=== PATIENT | male | born 1955 | race Two or more races ===

== ENCOUNTER 2019-08-05 10:19 | Outpatient (CLI) | payer OTHER | END 2019-08-05 11:00 | disposition home or self-care (01) | LOC: SONOGRAMA 10:19 | DX: N20.0 Calculus of kidney (principal); N40.1 Benign prostatic hyperplasia with lower urinary tract symptoms ==

== ENCOUNTER 2023-12-25 08:28 | Outpatient (CLI) | payer OTHER | END 2023-12-25 08:45 | disposition home or self-care (01) | LOC: SONOGRAMA 08:28 | PROVIDERS: ATTEND Urology | DX: N20.0 Calculus of kidney (principal); N40.1 Benign prostatic hyperplasia with lower urinary tract symptoms; N40.0 Benign prostatic hyperplasia without lower urinary tract symptoms; R31.1 Benign essential microscopic hematuria; R33.9 Retention of urine, unspecified ==

== ENCOUNTER 2024-12-23 09:49 | Outpatient (CLI) | payer OTHER | END 2024-12-23 10:07 | disposition home or self-care (01) | LOC: SONOGRAMA 09:49 | PROVIDERS: ATTEND Urology | DX: N40.1 Benign prostatic hyperplasia with lower urinary tract symptoms (principal); R33.9 Retention of urine, unspecified; R31.1 Benign essential microscopic hematuria; N20.0 Calculus of kidney ==